=== PATIENT | female | born 1995 | race Caucasian/White ===

== ENCOUNTER 2023-09-04 07:23 | Inpatient (IN) | payer OTHER, SELFPAY ==
[2023-09-03 16:38] VITALS: BP 147/95
[2023-09-03] MEDS: DUONEB 3 ML INH (17:50)
[2023-09-03] MEDS: SOLU-MEDROL PF 125 MG IV (17:51)
[2023-09-03 17:57] LABS: % Basophils 0.2 % (0-2); % Immature Granulocytes 0.8 % (0-0.5); % Lymphocytes 15.1 % (20.5-51.1); % Monocytes 3.6 % (1.7-9.3); % Neutrophils 80.3 % (42.2-75.2); Absolute Immature Granulocytes 0.2 10^3/uL (0-0.05); Absolute Lymphocytes 2.9 10^3/uL (1.2-3.4); Absolute Monocytes 0.7 10^3/uL (0.1-0.6); Absolute Neutrophils 15.2 10^3/uL (1.4-6.5); Hematocrit 39.2 % (37.0-47.0); Hemoglobin 13.3 g/dL (12.0-16.0); Mean Corp Hgb Conc. 33.9 g/dL (33.0-37.0); Mean Corpuscular Hgb 24.6 pg (27.0-31.0); Mean Corpuscular Volume 72.5 fL (81.0-99.0); Mean Platelet Volume 8.1 fL (7.4-10.4); Nucleated Red Blood Cells % 0 %; Platelet Count 555 10^3/uL (130-400); Red Blood Cell Count 5.41 10^6/uL (4.20-5.40); Red Cell Dist. Width 14.2 % (11.5-14.5); White Blood Cell Count 18.9 10^3/uL (4.8-10.8)
[2023-09-03] MEDS: VENTOLIN NEBULES 2.5 MG INH (18:03)
[2023-09-03 18:15] VITALS: BP 138/91
[2023-09-03 18:18] LABS: Blood Urea Nitrogen 12 mg/dl (7-17); Calcium 10.4 mg/dl (8.4-10.2); Carbon Dioxide 19 mmol/L (22-30); Chloride 105 mmol/L (98-107); Glucose 152 mg/dl (70-99); Potassium 4.1 mmol/L (3.5-5.1); Sodium 135 mmol/L (135-145); eGFR > 60.00
--- NOTE | 2023-09-03 18:25 | ED.GENMED ---
History of Present Illness
General
Chief Complaint: Breathing Problem
Source: patient
Time Seen by Provider: 09/03/23 17:26
Travel History
Have you had any contact with someone who has COVID-19?: No
Do you have any symptoms of coronavirus? Fever > 100 degrees, chills, cough, shortness of breath, sore throat, loss of taste or smell, muscle aches, or headache?: No
History of Present Illness
History of Present Illness:
28-year-old female with past medical history of asthma presenting to the emergency department for evaluation after she was seen at [place] this past Thursday for an asthma exacerbation and treated they are feeling better. Patient states symptoms
started up again which included cough and shortness of breath so she went to her primary care provider who prescribed her an antibiotic and prednisone yesterday which she took 1 dose of each. Today patient still noticed shortness of breath, cough
and chest tightness prompting her to come back to the ER today. She notes recent COVID infection which she believes is the likely trigger for her symptoms. She denies any new fevers, chills, rigors, chest pain, palpitations or any other concerns.
No recent hospitalizations for asthma and no previous history of intubations for asthma.
Past History
Past History
ED Past Medical History: Asthma
ED Past Surgical History: None
Social History
Tobacco: Non-smoker
Alcohol: None
Drug: None
Personal: Single
Living: with family
Employment: Student
Family History
Family History: Other (Twin sister with diagnosis of moyamoya)
Review of Systems
Review of Systems
All Other Systems: ROS reviewed and negative except as documented in HPI and ROS
Phy Exam
Physical Exam
Physical Exam:
GENERAL: Alert , in no apparent distress
EYE: conjunctiva clear
NECK: Supple, no significant adenopathy.
ENT: o/p clr, mmm.
CARDIAC: Regular rate and rhythm
LUNGS: restricted lung sounds throughout with expiratory phase wheezing scattered throughout the posterior lung miner, tachypneic but no accessory muscle use
NEUROLOGICAL: Alert and oriented
SKIN: Warm and dry, skin intact.
MUSCULOSKELETAL: well perfused.
PSYCH: Normal and appropriate interaction.
Scores
Heart Failure Risk
Heart Failure Risk Score: Not Applicable
Heart Score for Chest Pain Patients
STEMI patient?: Not applicable
Withdrawal Assessment of Alcohol
Withdrawal Assessment Completed?: Not applicable
Course
Orders/Labs/Results
Orders:
Orders
09/03/23 17:35
Albuterol Nebs [Ventolin Nebules] 2.5 mg INH R NOW STA
Ipratropium/Albuterol Sulfate [Duoneb] 3 ml INH R NOW ONE
MethylPREDNISolone PF [Solu-Medrol Pf] 125 mg IV NOW STA
09/03/23 17:47
Basic Metabolic Panel Urgent
Complete Blood Count/With Diff Urgent
09/03/23 18:55
Albuterol Sulfate [Ventolin Nebules] 10 mg INH R NOW STA
09/03/23 18:56
Magnesium Sulfate 2 Gram/50 ml [Magnesium Sulfate] 2 gram in 50 ml IV NOW
Abnormal Lab Results
09/03/23
17:47
WBC 18.9 H 10^3/uL
(4.8-10.8)
RBC 5.41 H 10^6/uL
(4.20-5.40)
MCV 72.5 L fL
(81.0-99.0)
MCH 24.6 L pg
(27.0-31.0)
Plt Count 555 H 10^3/uL
(130-400)
Abs Immat Gran (auto) 0.2 H 10^3/uL
(0-0.05)
Absolute Neuts (auto) 15.2 H 10^3/uL
(1.4-6.5)
Absolute Monos (auto) 0.7 H 10^3/uL
(0.1-0.6)
Immature Gran % 0.8 H %
(0-0.5)
Neutrophils % 80.3 H %
(42.2-75.2)
Lymphocytes % 15.1 L %
(20.5-51.1)
Carbon Dioxide 19 L mmol/L
(22-30)
Glucose 152 H mg/dl
(70-99)
Calcium 10.4 H mg/dl
(8.4-10.2)
09/03/23 17:47
09/03/23 17:47
Vital Signs
Initial and Last Documented VS:
Initial Vital Signs
Temp Pulse Resp BP Pulse Ox
98.6 F 98 16 147/95 98
09/03/23 16:38 09/03/23 16:38 09/03/23 16:38 09/03/23 16:38 09/03/23 16:38
Last Documented Vital Signs
Temp Pulse Resp BP Pulse Ox
98.6 F 101 18 138/91 99
09/03/23 16:38 09/03/23 18:15 09/03/23 18:15 09/03/23 18:15 09/03/23 18:15
MDM/Problems Addressed
Differential Diagnosis Includes:
Asthma with acute exacerbation secondary to viral illness, pneumonia, I did consider PE as a diagnosis however given patient's wheezing and restricted lung sounds and suspect asthma exacerbation to be most likely diagnosis.
MDM/Problems Addressed:
28-year-old female presenting to the ER for evaluation of some shortness of breath and cough that has been ongoing since past Thursday. Seen at a another facility on Thursday and treated with nebulizers but did not get sent home with anything. Saw
primary care provider yesterday who started her on prednisone and an antibiotic but she has not had any relief. No fevers here. Satting normally. Lungs do have wheezing and restricted lung sounds throughout. Will trial a DuoNeb and albuterol neb
as well as dose of Solu-Medrol IV. Reassessment following.
Chronic conditions affecting care: Asthma
Acute Exacerbation and/or Progression of Chronic Illness: Asthma
*Pulse Oximetry
Patient hypoxic: no
*Critical Care Note
Total Time (30-74mins, 75-104mins- exclusive of procedures): Not Applicable
Comment
Comment:
Labs show a leukocytosis which is likely from patient's steroid intake. On reevaluation she still reports lung restriction and a slight wheeze. Lung exam does show more pronounced wheezing on the right and still sounds restricted. 1 hour neb and
magnesium infusion ordered. Patient may require admission for further treatment.
Patient Management
Discussion with other providers: Hospitalist
Escalation/DeEscalation of care consider admission/obs:
On reevaluation patient still with restricted lung sounds and wheezing although mildly improved. Will treat with 1 hour nebulizer and magnesium infusion. Given this is patient's third visit to a medical provider combined with need for additional
medications here will admit for overnight evaluation and continued nebs as needed. Hospitalist team is aware and accepts for continued evaluation and treatment.
ED Attending Note
-
Portions of this chart may have been created with voice recognition software.� Occasional wrong word or��sound alike� substitutions may have occurred due to the inherent limitations of voice recognition software.
Discharge Plan
Departure
Patient Disposition: Admit
Date of Disposition: 09/03/23
Time of Disposition: 19:26
Presentation/result/management discussed w/ accepting MD/DO: Hospitalist
Discharge Problem:
Asthma exacerbation
Prescriptions:
No Action
azithromycin 250 mg tablet
250 mg PO DAILY
prednisone 20 mg tablet
20 mg PO .TAPER
Patient Comments:
09/03/2023: Taper Directions: 3 tabs (60mg) daily x 2 days, 2 tabs (40mg) daily x 3 days, 1 tab (20mg) daily x 3 days
montelukast 10 mg tablet
10 mg PO QPM
levalbuterol tartrate 45 mcg/actuation HFA aerosol inhaler
1 puff INHALATION R Q6HPRN PRN (Reason: sob/wheezing)
budesonide-formoterol 80-4.5 mcg/actuation HFA aerosol inhaler
2 puff INHALATION R DAILY
Referrals:
Annelise Morleand PA-C [Family Provider] -
Interventions
Interventions:
*Risk Screen - Suicide Last Done: 09/03/23 17:11
*General Assessment Last Done: 09/03/23 17:11
*Neglect/Abuse Screening Last Done: 09/03/23 17:11
ED- Fall Risk Assessment Last Done: 09/03/23 17:11
*ED COVID-19 Vaccine History Last Done: 09/03/23 16:38
ED- Cardiac Assessment Last Done: 09/03/23 17:11
ED- Pulmonary Assessment Last Done: 09/03/23 17:11
Discharge Date and Time
Print Language: MALAY
[2023-09-03] MEDS: MAGNESIUM SULFATE 50 IV (18:59)
[2023-09-03] MEDS: VENTOLIN NEBULES 10 MG INH (19:00)
--- NOTE | 2023-09-03 19:35 | HPS.HSE ---
Addendum entered and electronically signed by Kory Philip MD 09/03/23 21:13:
I saw and examined the patient.
The BUILDING CLEANING SUPERVISOR or PA's note was reviewed and I agree with the note.
Comment:
Patient is a pleasant 28 years old female with a history of asthma who was recently diagnosed with COVID 2 weeks ago came to the ER with increased shortness of breath and wheezing, was seen 5 days ago at [facility] and was given IV steroid
and breathing treatment, seen by her PCP yesterday and was given Zithromax and prednisone, will be admitted for asthma exacerbation with IV Solu-Medrol, DuoNeb treatment, consider pulmonology consult if no improvement in first 24 hours.
Physical exam:
GENERAL : Patient is awake, alert, oriented x3
HEENT: Nonicteric sclerae, PERRLA, EOMI. Oropharynx clear. Moist mucous membranes. Conjunctivae appear well perfused.
CHEST: Chest wall is nontender.
HEART: Regular rate and rhythm without murmurs.
LUNGS: Diminished breath sound bilaterally with diffuse bilateral wheezing
ABDOMEN: Soft, positive bowel sounds, nontender, no organomegaly.
RECTAL: Deferred.
SKIN: No rash, no excessive bruising, petechiae, or purpura.
NEUROLOGIC: Cranial nerves II-XII intact without motor/sensory deficit.
Assessment/plan:
Acute asthma exacerbation
IV steroid 40 mg every 8 hours
Patient received magnesium in the ER.
Chest x-ray done, read by me shows no acute finding
Continue home inhalers
Mild hyperglycemia.
Check hemoglobin A1c
Time spent 75 minutes
Original Note:
Family Physician
-
Family Physician: Annelise Moreland PA-C
Chief Complaint
-
Shortness of breath, cough, chest tightness
History of Present Illness
28-year-old female who reports she had COVID 2 weeks ago which exacerbated her asthma. She was seen at [place] on Thursday 5 days ago and given IV steroids in addition to breathing treatments she was sent home.. She was seen by her PCP yesterday
started on azithromycin and prednisone 20 mg for which she took 2 of each. She reports persistent shortness of breath cough and chest tightness prompting her to come back to the ER today she takes daily Dulera twice daily she denies any prior
history of intubations. She denies fever, chills, chest pain, palpitations, abdominal pain, nausea, vomiting, diarrhea, urinary symptoms. She has past medical history of moderate persistent asthma and headaches.
Medical History
Past Medical History
Past Medical History: Reports Other (Moderate persistent asthma, headaches)
Past Surgical History: Reports None
Social History
Tobacco: Non-smoker
Alcohol: Occasional
Drug: None
Personal:
Living: With Family
Employment: Employed (Works customer success intern at a desk)
Family History
Family History: Other (Twin sister diagnosis moyamoya, asthma, father history asthma, mother history hypertension)
Allergies / Home Medications
Allergies reflects when Allergies were last updated in [facility].
Home Medications with original date entered in [facility]
Allergy/Medication List:
Allergies
Allergy/AdvReac Type Severity Reaction Status Date / Time
milk [Milk] Allergy Mild Nausea / Verified 09/03/23 16:41
Vomiting
soy [Soy] Allergy Nausea / Verified 09/03/23 16:41
Vomiting
Home Medications
azithromycin 250 mg tablet 250 mg PO DAILY 09/03/23
levalbuterol tartrate 45 mcg/actuation aerosol inhaler 1 puff inhalation R Q6HPRN PRN sob/wheezing 09/03/23
mometasone-formoterol HFA 100 mcg-5 mcg/actuation aerosol inhaler (Dulera) 2 puff inhalation BID 09/03/23
montelukast 10 mg tablet 10 mg PO QPM 09/03/23
prednisone 20 mg tablet 20 mg PO .TAPER 09/03/23
Review of Systems
-
History Source: Patient and Family ()
A 12 point ROS was completed and negative except as noted: Yes
Constitutional: Denies Fever or Chills
EENT: Denies Sore Throat or Runny Nose
Respiratory: Reports Cough and Trouble Breathing (Wheezing)
Cardiac: Denies Chest Pain, Diaphoresis, Palpitations or Syncope
Abdomen/GI: Denies Abdominal Pain, Nausea, Vomiting, Diarrhea, Constipated or Bloody Stools
: Denies Dysuria, Frequency, Flank Pain, Incontinence, Difficulty Voiding or Urgency
Musculoskeletal: Denies Joint Pain or Edema
Skin: Denies Itching or Rash
Neurological: Denies Dizzy, Headache or Weakness
Endocrine: Reports No Symptoms
Hematologic/Lymphatic: Reports No Symptoms
Psych: Reports Calm
Physical Exam
Vital Signs
Vital Signs
Temp Pulse Resp BP Pulse Ox
98.6 F 101 18 138/91 99
09/03/23 16:38 09/03/23 18:15 09/03/23 18:15 09/03/23 18:15 09/03/23 18:15
Physical Exam
General: Comfortable, Conversant and Obese; No Pain, Fever or Chills
HEENT: NormoCephalic, Anicteric, PERRLA, [place] Conjunctivae, No Ptosis and Neck Nontender
Respiratory: Wheezes (Inspiratory wheeze right lung, with expiratory wheeze over left lung); No Rales or Rhonchi
Cardiac: S1/S2 and Regular Rhythm; No Murmur, Rub, Gallop or Peripheral Edema
Breast: Deferred by me
GI: Soft, Non Tender, Non Distended, Normal Bowel Sounds and No Hepatosplenomegaly
Rectal: Deferred by Provider
Genito-urinary: Deferred by me
Musculoskeletal: No Clubbing, No Cyanosis and No Edema
Skin: Warm and Dry; No Rash
Neuro: AO x 3, No Motor Deficits, Nonfocal/grossly intact, Cranial Nerves Intact and No Sensory Deficits; No Slurred Speech, Facial Droop or Tremors
Psych: Calm
Laboratory Results
-
09/03/23 17:47
09/03/23 17:47
Impression/Plan
-
Impression/plan:
Observation MedSurg
#Acute asthma exacerbation/Hx moderate persistent asthma
-Given magnesium drip in ER
-Given Solu-Medrol 125 mg, continue Iv solumedrol 40 q8h
-Continue DuoNebs scheduled and as needed
-Continue Dulera 1 puff twice daily
-cont montelukast
-Chest x-ray
-Continue azithromycin 250 mg daily x 3 additional days
-Follow CBC, BMP
#Leukocytosis secondary to steroid use
WBC 18.9
Was given steroids 5 days ago in ER and has taken 2 doses of 20 mg each prednisone
#Hyperglycemia secondary to steroid use
BS 152, check HgbA1c
#Recent COVID infection 2 weeks ago
#History of frequent headaches
-Patient takes ibuprofen as needed for headache
DVT prophylaxis
SCDs
Full code
[2023-09-03 19:59] VITALS: BP 124/70
[2023-09-03 21:01] VITALS: BP 121/82; BMI 40.2
[2023-09-03] MEDS: MELATONIN 3 MG PO (21:59)
--- NOTE | 2023-09-03 22:19 | PTCARENOTE ---
Received pt from ED via wheelchair. Patient ambulated to bed without assistance. AAOx3, VSS. Oriented to floor, call alston within reach.
[2023-09-03 23:30] VITALS: BP 130/76
[2023-09-04] MEDS: SOLU-MEDROL PF 40 MG IV ×2 (02:06→10:49)
--- NOTE | 2023-09-04 07:18 | W.PN.HOSP.TC ---
Today's Communication/Plan
-
bronchodilators
azithromycin
transition IV steroids to PO
possible discharge tomorrow if remains stable/continues to improve
Assessment / Plan
Assessment / Plan
Physical Exam
GENERAL : No acute distress appears comfortable at this time
HEENT: Nonicteric sclerae, PERRLA, EOMI
CHEST: Chest wall is nontender.
HEART: Regular rate and rhythm without murmurs.
LUNGS: CTAB
ABDOMEN: Soft, positive bowel sounds, nontender, no organomegaly.
SKIN: No rash, no excessive bruising, petechiae, or purpura.
NEUROLOGIC: AOx3
HPI: 28-year-old female who reports she had COVID 2 weeks ago which exacerbated her asthma. She was seen at [place] on Thursday 5 days ago and given IV steroids in addition to breathing treatments she was sent home.. She was seen by her PCP
yesterday started on azithromycin and prednisone 20 mg for which she took 2 of each. She reports persistent shortness of breath cough and chest tightness prompting her to come back to the ER today she takes daily Dulera twice daily she denies any
prior history of intubations. She denies fever, chills, chest pain, palpitations, abdominal pain, nausea, vomiting, diarrhea, urinary symptoms. She has past medical history of moderate persistent asthma and headaches.
#Acute asthma exacerbation/Hx moderate persistent asthma
-Given magnesium drip in ER
-Given Solu-Medrol 125 mg, continued Iv solumedrol 40 q8h, transitioned to PO prednisone 50 mg daily with clinical improvement
-Continue DuoNebs scheduled and as needed
-Continue Dulera 1 puff twice daily
-cont montelukast
-Chest x-ray appreciated no acute abn's
-Continue azithromycin 250 mg daily x 3 additional days
-Follow CBC, BMP
#Leukocytosis secondary to steroid use
Patient was on prednisone taper prior to presentation to ED
received high dose steroids
will cont to monitor
#Hyperglycemia secondary to steroid use
A1c 6.2 prediabetic
#Recent COVID infection 2 weeks ago
#History of frequent headaches
-Patient takes ibuprofen as needed for headache
DVT prophylaxis
SCDs
Full code
discussed with patient and patient's mother Charo at bedside
I spent a total of 55 minutes with the patient or on the floor. More than 50% of this time involved counseling and coordination of care.
Anticipated Discharge: 24 - 48 hours
Subjective/Interval History
-
Date of Service: September 04, 2023
Wheezing sob resolved. Breathing well on room air. Patient reports overall feeling well. Patient's mother Charo present during evaluation.
Objective Data
-
Labs:
Laboratory Results
09/04/23
06:30
WBC Pending
Hgb Pending
Hct Pending
Plt Count Pending
Sodium Pending
Potassium Pending
Chloride Pending
Carbon Dioxide Pending
BUN Pending
Creatinine Pending
Glucose Pending
Calcium Pending
Vital Signs:
Vital Signs
Temp Pulse Resp BP Pulse Ox
97.9 F 99 18 130/76 92
09/03/23 23:30 09/03/23 23:30 09/03/23 23:30 09/03/23 23:30 09/03/23 23:30
[2023-09-04 07:20] LABS: % Basophils 0.2 % (0-2); % Immature Granulocytes 1.6 % (0-0.5); % Lymphocytes 9.4 % (20.5-51.1); % Monocytes 1.1 % (1.7-9.3); % Neutrophils 87.7 % (42.2-75.2); Absolute Basophils 0.1 10^3/uL (0-0.2); Absolute Immature Granulocytes 0.5 10^3/uL (0-0.05); Absolute Monocytes 0.4 10^3/uL (0.1-0.6); Absolute Neutrophils 28.4 10^3/uL (1.4-6.5); Hematocrit 39.4 % (37.0-47.0); Hemoglobin 12.8 g/dL (12.0-16.0); Mean Corp Hgb Conc. 32.5 g/dL (33.0-37.0); Mean Corpuscular Hgb 24.5 pg (27.0-31.0); Mean Corpuscular Volume 75.5 fL (81.0-99.0); Mean Platelet Volume 8.5 fL (7.4-10.4); Nucleated Red Blood Cells % 0 %; Platelet Count 535 10^3/uL (130-400); Red Blood Cell Count 5.22 10^6/uL (4.20-5.40); Red Cell Dist. Width 14.4 % (11.5-14.5); White Blood Cell Count 32.4 10^3/uL (4.8-10.8)
[2023-09-04] MEDS: DUONEB 3 ML INH ×4 (07:25→19:25)
[2023-09-04] MEDS: SYMBICORT 80/4.5 MCG INHALER 2 PUFF INH ×2 (07:25→19:25)
[2023-09-04 07:30] VITALS: BP 124/81
[2023-09-04 07:54] LABS: Blood Urea Nitrogen 12 mg/dl (7-17); Calcium 9.4 mg/dl (8.4-10.2); Carbon Dioxide 19 mmol/L (22-30); Chloride 105 mmol/L (98-107); Estimated Creatinine Clearance > 125 ml/min; Glucose 130 mg/dl (70-99); Potassium 4.2 mmol/L (3.5-5.1); Sodium 138 mmol/L (135-145); eGFR > 60.00
[2023-09-04] MEDS: ZITHROMAX 250 MG PO (08:13)
[2023-09-04] MEDS: FLUSH (NSS) 1 FLUSH IV (08:13)
--- NOTE | 2023-09-04 08:56 | PTOTSP ---
The patient is here for asthma exacerbation - no changes in mobility and remains independent. PT evaluation is not warranted, will sign off.
[2023-09-04] MEDS: TYLENOL 650 MG PO (09:07)
[2023-09-04 09:11] LABS: Glycohemoglobin (HgbA1c) 6.2 % (4.0-5.6)
[2023-09-04] MEDS: DELTASONE 50 MG PO (12:41)
[2023-09-04 15:15] VITALS: BP 148/72
--- NOTE | 2023-09-04 17:38 | CM ---
Neha is a 28yo woman, living with her in an apartment in [place]. She has a few steps to enter her apartment, but does not feel that will be a problem for her asthma. She has a supportive family and has no concerns about
returning home when ready for discharge.
Plan: Discharge to home with ; no needs identified.
PCP: Dr. Annelise Moreland
Pharmacy: [facility] in [place]
[2023-09-04] MEDS: SINGULAIR 10 MG PO (17:52)
[2023-09-04] MEDS: MELATONIN 3 MG PO (21:34)
[2023-09-04 23:42] VITALS: BP 141/83
--- NOTE | 2023-09-05 06:59 | W.PN.HOSP.TC ---
Today's Communication/Plan
-
discharge
Assessment / Plan
Assessment / Plan
Physical Exam
GENERAL : No acute distress appears comfortable at this time
HEENT: Nonicteric sclerae, PERRLA, EOMI
CHEST: Chest wall is nontender.
HEART: Regular rate and rhythm without murmurs.
LUNGS: CTAB
ABDOMEN: Soft, positive bowel sounds, nontender, no organomegaly.
SKIN: No rash, no excessive bruising, petechiae, or purpura.
NEUROLOGIC: AOx3
HPI: 28-year-old female who reports she had COVID 2 weeks ago which exacerbated her asthma. She was seen at [place] on Thursday 5 days ago and given IV steroids in addition to breathing treatments she was sent home.. She was seen by her PCP
yesterday started on azithromycin and prednisone 20 mg for which she took 2 of each. She reports persistent shortness of breath cough and chest tightness prompting her to come back to the ER today she takes daily Dulera twice daily she denies any
prior history of intubations. She denies fever, chills, chest pain, palpitations, abdominal pain, nausea, vomiting, diarrhea, urinary symptoms. She has past medical history of moderate persistent asthma and headaches.
#Acute asthma exacerbation/Hx moderate persistent asthma
-Given magnesium drip in ER
-Given Solu-Medrol 125 mg, continued Iv solumedrol 40 q8h, transitioned to PO prednisone 50 mg daily with clinical improvement
-Continue DuoNebs scheduled and as needed
-Continue Dulera 1 puff twice daily
-cont montelukast
-Chest x-ray appreciated no acute abn's
-CT chest appreciated no PE, possible developing pna lower lobes vs obstructive small airway disease vs pulm edema.
-switching azithromycin to Augmentin for 5 more days
-outpatient follow up with pulmonology recommended.
#Thrombocytosis
likely 2/2 recent COVID infection
outpt follow up with primary recommended
#Leukocytosis secondary to steroid use
Patient was on prednisone taper prior to presentation to ED
received high dose steroids
trending down
#Hyperglycemia secondary to steroid use
A1c 6.2 prediabetic
hyperglycemia since improved with steroid taper
#Recent COVID infection 2 weeks ago
#History of frequent headaches
-Patient takes ibuprofen as needed for headache
DVT prophylaxis
SCDs
Full code
discussed with patient and patient's Gordo at bedside
Total Time Preparing Discharge ___50____ minutes including examination of the patient, summary of the hospital stay, instructions for continuing care to all relevant caregivers; and preparation of discharge records, prescriptions, and referral
forms if necessary.
Anticipated Discharge: Today
Subjective/Interval History
-
Date of Service: September 05, 2023
Seen and examined at bedside in no acute distress. Patient reports feeling well. Denies new acute issues at this time including shortness of breath. Ambulating without issues. Eager to go home. Gordo present during evaluation
Objective Data
-
Labs:
Laboratory Results
09/05/23
06:16
WBC Pending
Hgb Pending
Hct Pending
Plt Count Pending
Sodium Pending
Potassium Pending
Chloride Pending
Carbon Dioxide Pending
BUN Pending
Creatinine Pending
Glucose Pending
Calcium Pending
Vital Signs:
Vital Signs
Temp Pulse Resp BP Pulse Ox
98.5 F 98 20 141/83 94
09/04/23 23:42 09/04/23 23:42 09/04/23 23:42 09/04/23 23:42 09/04/23 23:42
I&O
09/03/23 09/04/23 09/05/23
06:59 06:59 06:59
Intake Total 960 / 960
Balance 960 / 960
[2023-09-05 07:19] LABS: Hematocrit 39.3 % (37.0-47.0); Hemoglobin 12.5 g/dL (12.0-16.0); Mean Corp Hgb Conc. 31.8 g/dL (33.0-37.0); Mean Corpuscular Hgb 24.4 pg (27.0-31.0); Mean Corpuscular Volume 76.8 fL (81.0-99.0); Mean Platelet Volume 8.4 fL (7.4-10.4); Platelet Count 549 10^3/uL (130-400); Red Blood Cell Count 5.12 10^6/uL (4.20-5.40); Red Cell Dist. Width 14.9 % (11.5-14.5); White Blood Cell Count 31.2 10^3/uL (4.8-10.8)
[2023-09-05] MEDS: SYMBICORT 80/4.5 MCG INHALER 2 PUFF INH (07:25)
[2023-09-05] MEDS: DUONEB 3 ML INH ×2 (07:25→11:17)
[2023-09-05 07:44] LABS: Blood Urea Nitrogen 14 mg/dl (7-17); Calcium 9.4 mg/dl (8.4-10.2); Carbon Dioxide 24 mmol/L (22-30); Chloride 103 mmol/L (98-107); Estimated Creatinine Clearance > 125 ml/min; Glucose 92 mg/dl (70-99); Magnesium 2.4 mg/dl (1.6-2.3); Potassium 4.8 mmol/L (3.5-5.1); Sodium 139 mmol/L (135-145); eGFR > 60.00
[2023-09-05 07:55] VITALS: BP 125/83
[2023-09-05] MEDS: DELTASONE 50 MG PO (08:21)
[2023-09-05] MEDS: FLUSH (NSS) 1 FLUSH IV (08:21)
[2023-09-05] MEDS: ZITHROMAX 250 MG PO (08:21)
[2023-09-05] MEDS: PROTONIX 40 MG PO (11:02)
[2023-09-05 11:46] LABS: HCG, Urine Qualitative Screen Negative
--- NOTE | 2023-09-05 13:59 | W.DCSUMMARY ---
Discharge Summary
Discharge Data
Date of Admission: 09/04/23
Date of Discharge: 09/05/23
-
Pending Results: No
Discharge Plan
-
Patient Disposition: Home (Routine Discharge)
Discharge Diagnosis/Procedures: Asthma Exacerbation, history recent COVID infection, possible Pneumonia, Thrombocytosis possibly due to recent COVID infection, Prediabetes
Condition: Good
Diet: Regular
Activity: As tolerated
Driving Restrictions: As prior to admission
Bathing Restrictions: None
Blood Work: Please repeat CBC with primary care provider in 1 week of discharge.
Others Tests: Please follow up with Pulmonology for pulmonary function testing
Activity Restrictions/Additional Instructions:
Please follow up with primary care provider in 1 week of discharge and Pulmonology in 2 weeks of discharge.
A prednisone taper has been prescribed for asthma exacerbation:
50 mg daily for three days, then 40 mg daily for three days, then 30 mg daily for three days, then 20 mg daily for three days, then 10 mg daily for last 3 days.
Protonix has been prescribed for GI prophylaxis while on roasterman high dose steroids. Ok to discontinue when steroid regimen completes or at the discretion of your primary care provider and/or other healthcare provider involved in your care.
Augmentin has been prescribed for possible developing pneumonia, 5 more days. Azithromycin has been discontinued, no need to continue taking.
Please take medications as prescribed/recommended and follow up with primary care provider and/or other healthcare provider involved in your care for refills and/or further adjustment to your medication regimen as necessary.
Referrals:
Yue Dorsey, DO [Active] - in two weeks
Annelise Moreland PA-C [Family Provider] - in one week
Prescriptions:
New
prednisone 10 mg Tablet
See Rx Instructions .ROUTE .COMPLEX Qty: 45 0RF
Rx Instructions:
Take By Mouth:
50 mg daily x3 days, 40 mg daily x3 days,
30 mg daily x3 days, 20 mg daily x3 days,
10 mg daily x3 days
amoxicillin-pot clavulanate 875-125 mg Tablet
1 tab PO BID 5 Days Qty: 10 0RF
Rx Instructions:
Start 09/06/23 morning
pantoprazole 40 mg Tablet,Delayed Release (Dr/Ec)
40 mg PO DAILY 15 Days Qty: 15 0RF
Rx Instructions:
For GI prophylaxis while on steroids. Ok to discontinue once steroid taper completes.
Continued
montelukast 10 mg tablet
10 mg PO QPM
levalbuterol tartrate 45 mcg/actuation HFA aerosol inhaler
1 puff INHALATION R Q6HPRN PRN (Reason: sob/wheezing)
Dulera 100-5 mcg/actuation Hfa Aerosol Inhaler
2 puff INHALATION BID
Discontinued
azithromycin 250 mg tablet
250 mg PO DAILY
prednisone 20 mg tablet
20 mg PO .TAPER
Patient Comments:
09/03/2023: Taper Directions: 3 tabs (60mg) daily x 2 days, 2 tabs (40mg) daily x 3 days, 1 tab (20mg) daily x 3 days
Discharge Orders:
Discharge Patient (As Directed); Ordered 09/05/23
Ordered By: Luci Fernández
Discharge Date and Time
Print Language: ALBANIAN
[2023-09-05] MEDS: AUGMENTIN 875 MG/125 MG 1 TABLET PO (14:04)
--- NOTE | 2023-09-05 14:19 | CM ---
CM reviewed chart and noted dc order
Per chart review, no dc needs noted
Discharge Disposition- home, no needs
[2023-09-05 14:30] VITALS: O2SAT 95
[2023-09-05 14:53] VITALS: BP 132/78
== END 2023-09-05 15:13 | disposition home or self-care (01) | DRG 194 ==
LOC: 4 EAST ACU 07:23
PROVIDERS: Clinical Nurse Specialist Family Health; Physician Assistant Medical; ADMITTING PHYSICIAN General Practice; ATTENDING PHYSICIAN Internal Medicine; EMERGENCY PHYSICIAN Student in an Organized Health Care Education/Training Program; FAMILY PHYSICIAN Physician Assistant Medical
DX: J18.9 Pneumonia, unspecified organism (principal); J45.41 Moderate persistent asthma with (acute) exacerbation; D75.838 Other thrombocytosis; D72.829 Elevated white blood cell count, unspecified; T38.0X5A Adverse effect of glucocorticoids and synthetic analogues, initial encounter; R73.03 Prediabetes; Z86.16 Personal history of COVID-19; Z79.51 Long term (current) use of inhaled steroids; Z79.899 Other long term (current) drug therapy; Z82.5 Family history of asthma and other chronic lower respiratory diseases
CPT/HCPCS: 71046; 71275; 80048; 81025; 83036; 83735; 84100; 85025; 85027; 93005; 94640; 94644; 96374; 96375; 99284; Q9967